=== PATIENT | female | born 1995 | race Caucasian/White ===

== ENCOUNTER 2020-06-11 13:14 | Outpatient (REF) | payer SELFPAY | END 2020-06-11 13:15 | disposition home or self-care (01) | LOC: HO.LAB 13:14 | PROVIDERS: Visit Provider Internal Medicine | DX: Z20.828 Contact with and (suspected) exposure to other viral communicable diseases (principal) | CPT/HCPCS: C9803; U0003 ==

== ENCOUNTER 2021-03-08 08:17 | Emergency (ER) | payer SELFPAY ==
--- NOTE | ~2021-03-08 | XR_ITS ---
EXAMINATION: XR FINGER, RIGHT CLINICAL INFORMATION: Pain right thumb. COMPARISON: None TECHNIQUE: 2 views right thumb and AP view right hand are obtained for 3 views. FINDINGS: There is no visible acute or healing fracture, dislocation, destructive process. Bony mineralization is normal. There is no joint narrowing or erosive change. XR/XR finger RT min 2V IMPRESSION: Unremarkable right thumb.
[2021-03-08 09:18] VITALS: BP 111/63; PULSE 74; RESP 20; TEMP 36.7; O2SAT 100; BMI 19.3
--- NOTE | 2021-03-08 10:05 | ED.FALL ---
HPI - Fall General Chief Complaint: Extremity Injury, Upper Stated Complaint: THUMB INJ Time Seen by Provider: 03/08/21 09:59 Source: patient Mode of arrival: ambulatory Limitations: no limitations History of Present Illness MD complaint: fall Onset (ago): day(s) (Two days ago) Fall from: other (while skating ) Fall witnessed: yes, by family and yes, by bystander Place fall occurred: other (Skate park) Loss of consciousness: none Prolonged down time: no Symptoms prior to fall: none Context: tripped/slipped Location of injury - extremities: right: hand (thumb) Severity: moderate Quality: aching Associated symptoms (after fall): denies Related Data Previous Rx's Medication Instructions Recorded acetaminophen 300 mg-codeine 30 mg 1 tab PO Q8H PRN #10 tab 03/08/21 tablet ibuprofen 800 mg tablet 800 mg PO Q8H PRN #14 tab 03/08/21 Allergies Allergy/AdvReac Type Severity Reaction Status Date / Time No Known Allergies Allergy Verified 03/08/21 09:21 Review of Systems Review of Systems: Constitutional : No changes in activity, No lethargy, No recent prior head injury, No agitation, No increased fussiness ENT/Mouth : No Ear Pain, No Nasal discharge/drainage Eyes: No Eye Pain, No Swelling, No Redness, No Foreign Body, No Vision Changes Cardiovascular : No Chest Pain, No SOB Respiratory : No Cough Gastrointestinal : No Nausea, No Vomiting, No abdominal Pain Genitourinary : No Dysuria, No Urinary Frequency, No Urinary Incontinence, No Urgency, No Flank Pain Musculoskeletal : + joint pain, No neck stiffness, No back pain/injury Skin : No lacerations Neuro : No unsteady gait, No Paresthesias, No Loss of Consciousness, No altered mental status, No Headache Yes all other systems are reviewed and are negative [facility] Past Medical History Attestation statement: The following information was validated with the patient. Medical History Anemia Social History Social History Advance Directives: Yes Advance Directives Information Provided: No Advance Directives on File: No Physical Exam Vital Signs: Vital Signs: Last Vital Signs Temp 98.0 F 03/08/21 09:18 Pulse 74 03/08/21 09:18 Resp 20 03/08/21 09:18 BP 111/63 03/08/21 09:18 Pulse Ox 100 03/08/21 09:18 Body Mass Index 19.3 vital signs have been reviewed as normal and appeared to be correct. Blood pressure normal. Heart rate normal. Respiration rate normal. Temperature normal. Oxygen saturation normal. Appearance: Alert. Oriented X3. No acute distress. Head: Normal external exam. Normocephalic. Atraumatic. Eyes: PERRLA. EOMI. Conjunctiva and sclera normal. Eyelids normal. ENT: Pharynx normal. Uvula midline. Moist mucous membranes. Neck: Normal inspection. Neck supple. FROM. No adenopathy. Thyroid Normal. No meningeal signs. No neck mass noted. CVS: Normal heart rate and rhythm. Heart sound normal. Pulses normal throughout. No murmurs/rales/gallops. Respiratory: No respiratory distress. Painless inspiration. Back: Full range of motion noted. No rashes/lesion/induration/fluctuance or signs of infection noted. Skin: Skin warm and dry. Normal skin color. Normal skin turgor. No rashes/lesions/lacerations noted. Extremities: To right hand thumb at the distal aspect at the radial and ulnar aspect patient has tenderness palpation with mild soft tissue swelling and ecchymosis noted although patient has full range of motion no obvious ligamentous or tendon injury. Otherwise all other extremities Extremities exhibit normal range of motion and nontender. Neuro: Oriented X 3. No motor deficit. No sensory deficit. Reflexes normal. Normal steady gait. No focal neuro deficits noted. Vascular: + radial pulses. Normal cap refill. No cyanosis noted to upper extremity nails.. Course Course Course Narrative: 25-year-old female presenting to the ED with complaints of right thumb pain at the distal aspect after she had a mechanical fall at the [employer] [place] no head injury loss of consciousness. Not on any blood thinners. She has her own finger splint. Patient x-ray negative for any acute processes. Will DC home with symptomatic treatment instructions to return if any new or worsening symptoms and to follow-up with hand orthopedist in 2-3 weeks if symptoms persist. Patient understands agrees with this plan. MDM - Fall Medical Records Attestation: I reviewed the patient's medical records. Imaging Data Right thumb x-ray: Attestation: I personally reviewed and interpreted this imaging study as follows: Radiologist's impression: FINDINGS: There is no visible acute or healing fracture, dislocation, destructive process. Bony mineralization is normal. There is no joint narrowing or erosive change.? XR/XR finger RT min 2V IMPRESSION: Unremarkable right thumb. Discharge Plan Discharge Clinical Impression: Finger sprain, Fall Patient Disposition: Home, Self-Care Instructions: Finger Sprain (ED) Prescriptions: New ibuprofen 800 mg tablet 800 mg PO Q8H PRN (Reason: pain) Qty: 14 RF: 0 acetaminophen-codeine 300-30 mg tablet 1 tab PO Q8H PRN (Reason: pain) Qty: 10 RF: 0 Referrals: Elizabeth Chavarria MD [Physician] - 2 weeks (If symptoms persist for longer than 2-3 weeks make an appointment) Stand Alone Forms: Work/School Release Print Language: [place]
--- NOTE | 2021-03-08 10:21 | PC.NURSE ---
PT AWAKE, ALERT AND ORIENTED X 3. SKIN WARM AND DRY. RESP UNLABORED. DENIES N/V. REPORTS RIGHT THUMB INJURY. +CMS. STATES HAPPENED TWO DAYS AGO WHILE SKATING. EVALUATED BY SHERRELL PALMA. AWARE AND AGREEABLE TO ED CARE PLAN.
== END 2021-03-08 10:34 | disposition home or self-care (01) ==
PROVIDERS: Emergency Provider Emergency Medicine
DX: S63.601A Unspecified sprain of right thumb, initial encounter (principal); M79.641 Pain in right hand; W01.0XXA Fall on same level from slipping, tripping and stumbling without subsequent striking against object, initial encounter; Y93.9 Activity, unspecified; Y92.830 Public park as the place of occurrence of the external cause; Y99.9 Unspecified external cause status; Z79.899 Other long term (current) drug therapy
CPT/HCPCS: 73140; 99283

== ENCOUNTER 2022-06-17 10:29 | Emergency (ER) | payer SELFPAY ==
[2022-06-17 10:31] VITALS: BP 141/89; PULSE 84; RESP 16; TEMP 36.7; O2SAT 99; BMI 21.7
--- NOTE | 2022-06-17 10:50 | ED.FEVER ---
HPI - Fever General Chief Complaint: Fever Stated Complaint: fever Time Seen by Provider: 06/17/22 10:50 Source: patient Mode of arrival: ambulatory Limitations: no limitations History of Present Illness HPI Narrative: 26 yo female presents to the ER for evaluation of cough, fevers, and chest soreness that started 5 days ago. She states she started with a dry cough all week. She has had intermittent low-grade fevers of 100.5 which respond to ibuprofen. She states she was taking DayQuil all week but it did not work well for her symptoms. She states couple days ago she started getting bilateral rib pain whenever she coughs. Her chest wall is sore. She states today when she coughs she started bringing up some phlegm and had a blood tinged color to it so she decided to come to the ER for evaluation. She denies any shortness of breath or chest pain at rest. No lower extremity swelling. No known sick contacts. MD elicited complaint: fever and other (Cough) Onset (ago): day(s) (5) Measured temperature: 100.5 F Exacerbating factors: at night Relieving factors: ibuprofen Associated symptoms: chills, myalgias, headache, nasal congestion, cough, chest pain and diarrhea Related Data Previous Rx's Medication Instructions Recorded acetaminophen 300 mg-codeine 30 mg 1 tab PO Q8H PRN pain #10 tabs 03/08/21 tablet ibuprofen 800 mg tablet 800 mg PO Q8H PRN pain #14 tabs 03/08/21 benzonatate 100 mg capsule 100 mg PO TID PRN cough #20 caps 06/17/22 hydrocodone-homatropine 5 mg-1.5 5 ml PO Q4-6H PRN cough #60 mL 06/17/22 mg/5 mL (5 mL) oral syrup (Hycodan) Allergies Allergy/AdvReac Type Severity Reaction Status Date / Time No Known Allergies Allergy Verified 03/08/21 09:21 Review of Systems Review of Systems: Constitutional: + Fever, + Chills ENT/Mouth: No sore throat, No Rhinorrhea, No Swallowing Difficulty Eyes: No Eye Pain, No Swelling, No Redness Cardiovascular: + Chest Pain, No SOB, No Orthopnea, No Edema Respiratory: + Cough, + Sputum, No Wheezing, No dyspnea Gastrointestinal: No Nausea, No Vomiting, + Diarrhea, No abdominal Pain Genitourinary: No Dysuria, No Urinary Frequency, No Hematuria Musculoskeletal: No joint pain, No Myalgias Skin: No Skin Lesions, No rash Neuro: + Weakness, No Numbness, No Dizziness, +Headache Heme/Lymph: No Lymphadenopathy PMFSH Past Medical History Medical History Anemia Social History Social History Advance Directives: No Advance Directives Information Provided: Yes Physical Exam Vital Signs: Vital Signs: Last Vital Signs Temp 98.1 F 06/17/22 10:31 Pulse 84 06/17/22 10:31 Resp 16 06/17/22 10:31 BP 141/89 H 06/17/22 10:31 Pulse Ox 99 06/17/22 10:31 O2 Del Method 06/17/22 10:31 BMI result Body Mass Index 21.7 Appearance: Alert. Oriented X3. No acute distress. Eyes: Pupils equal, round and reactive to light. ENT: Pharynx with moist mucous membranes, mild generalized erythema posteriorly with no tonsillar swelling or exudate. Uvula midline. Voice is normal. Neck: Normal inspection. Neck supple. CVS: Normal heart rate and rhythm. Pulses normal. Respiratory: No respiratory distress. Breath sounds normal. Mild tenderness of the lower portion of the chest wall. Abdomen: Soft and nontender. +BS x4 Skin: Skin warm and dry. Normal skin color. Normal skin turgor. No rashes. Extremities: No lower extremity edema. No calf tenderness. Neuro: Oriented X 3. Grossly normal, nonfocal Course Course Course Narrative: 26-year-old otherwise healthy female presents to the ER for evaluation of 5 days of intermittent fevers, cough, chest tightness and soreness. New onset of blood-tinged sputum x1 today. No rody hemoptysis. On arrival to the ER she is afebrile, saturating 99% on room air. Heart rate normal 84. She appears well and physical exam is benign. Viral swab sent. Most likely due to bronchitis or/and viral illness. Doubt PE. Reevaluation(s) Reevaluation #1: Positive for COVID and influenza. We discussed diagnosis and management. Vital signs remained stable. Stable for discharge home with supportive care. Workup provided per request. Antitussives sent to the pharmacy for symptom management. Medical Decision Making Lab Data Labs: Lab Results 06/17/22 Range/Units 10:37 Influenza Type A (PCR) POSITIVE A (Negative) Influenza Type B (PCR) NEGATIVE (Negative) RSV RNA Qual (PCR) NEGATIVE (Negative) SARS-CoV-2 RNA (RT-PCR) POSITIVE A (Negative) Discharge Plan Discharge Clinical Impression: Influenza A, COVID-19 Patient Disposition: Home, Self-Care Instructions: Covid-19 Viral Syndrome and Novel Coronavirus (ED) Hey/Ath, Influenza (ED) Additional Instructions: You tested positive for COVID-19 & Influenza A. Your exam and oxygen levels were normal. Rest. Drink plenty of fluids. Do not go out in public or be around others while you are not feeling well. Take over the counter cold/flu medications as needed for your symptoms. Take Tylenol and/or Motrin as needed for fevers and body aches. Take the prescribed cough medications as directed. Follow up with your doctor this week. If you shortness of breath worsens , if you develop difficulty breathing or any other concerning symptom come back to the ER for further evaluation. Prescriptions: New benzonatate 100 mg capsule 100 mg PO TID PRN (Reason: cough) Qty: 20 0RF hydrocodone-homatropine [Hycodan] 5-1.5 mg/5 mL (5 mL) syrup 5 ml PO Q4-6H PRN (Reason: cough) Qty: 60 0RF Rx Instructions: Partial Fill upon patient request. No Action ibuprofen 800 mg tablet 800 mg PO Q8H PRN (Reason: pain) Qty: 14 0RF acetaminophen-codeine 300-30 mg tablet 1 tab PO Q8H PRN (Reason: pain) Qty: 10 0RF Stand Alone Forms: Work/School Release
[2022-06-17 11:08] VITALS: TEMP 38.1
[2022-06-17 11:26] LABS: Influenza A PCR POSITIVE (Negative); Influenza B PCR NEGATIVE (Negative); Resp Syncy Virus RNA Qual PCR NEGATIVE (Negative); SARS COV2 PCR INHOUSE POSITIVE (Negative)
== END 2022-06-17 12:41 | disposition home or self-care (01) ==
PROVIDERS: Emergency Provider Student in an Organized Health Care Education/Training Program
DX: U07.1 COVID-19 (principal); J10.1 Influenza due to other identified influenza virus with other respiratory manifestations; R50.9 Fever, unspecified; M79.10 Myalgia, unspecified site; R07.89 Other chest pain; R51.9 Headache, unspecified; Z79.899 Other long term (current) drug therapy
CPT/HCPCS: 0241U; 99283